=== PATIENT | male | born 1940 | race Caucasian/White ===

== ENCOUNTER → 2020-11-24 11:21 | Outpatient (CLI) | payer OTHER, SELFPAY ==
[2020-11-24 12:55] LABS: Appearance Urine UA CLEAR; Bilirubin Urine UA NEGATIVE (NEGATIVE); Color Urine UA YELLOW; Glucose Urine UA NEGATIVE (Negative); Ketones Urine UA NEGATIVE (NEGATIVE); Leukocyte Esterase Urine UA 2+ (NEGATIVE); Nitrite Urine UA NEGATIVE (Negative); Occult Blood Urine UA 2+ (Negative); Protein Urine UA NEGATIVE (Negative); Specific Gravity Urine UA 1.025 (1.000-1.035); Urobilinogen Urine UA 0.2 E.U./dL (0.2); pH Urine UA 5.5 (4.5-8.0)
[2020-11-24 12:57] LABS: Bacteria Urine None Seen
[2020-11-24 13:01] LABS: Culture Indicated Urine Specimen Cultured; RBC Urine 1-5/HPF (0-5/HPF); Squamous Epithelial Cell Urine 0-1 /HPF (0-5/HPF); WBC Urine 5-10/HPF (0-5/HPF)
== END ==
PROVIDERS: PCP Internal Medicine; Referring Provider Specialist; Visit Provider Specialist
DX: N39.0 Urinary tract infection, site not specified (principal)
CPT/HCPCS: 81003; 81015; 87077; 87086; 87186

== ENCOUNTER → 2021-01-22 12:49 | Outpatient (CLI) | payer OTHER, SELFPAY ==
--- OUTSIDE RECORDS SUMMARY | 2021-02-23 10:49 | XMS_ITS | Referral Summary ---
:1940 Author Organization [facility] Address [address] [place] [address] Care Team Providers Name Role Phone Tien Joe MD Primary Care Provider Reason for Referral Consultation (Routine) Status Reason Specialty Diagnoses / Referred By Referred To Procedures Contact Contact Authorized Patient Urology Diagnoses Urinary tract infection without hematuria, site unspecified Otto Joe MD [facility] [address] [place] [id number] [place] [address] Phone: Electronically signed by Otto Joe MD at Reason for Visit Reason Onset Date Comments Referral 02/10/2021 Urology Encounter Details Date Type Department Care Team Description 02/10/2021 Telephone [facility] Otto Joe MD Referral (Urology ) Internal Medicine [address] [facility] [place], [place] [address] [facility] [address] [place], [place] [phone] Allergies No Known Active Allergiesdocumented as of this encounter (statuses as of 02/22/2021) Medications Medication Sig Dispensed Refills Start Date End Date Status multivitamin-minerals Take 1 tablet 0 Active -lutein (MULTIVITAMIN by mouth daily. 50 PLUS) tablet lansoprazole Take 15 mg by 0 Act pepito (PREVACID) 15 mg mouth daily capsule Takes every other day rOPINIRole (REQUIP) 0 12/22/2020 Active 0.5 mg tablet amLODIPine (NORVASC) Take 1 tablet 180 tablet 4 01/28/2021 Active 10 mg (10 mg total) tabletIndications: by mouth daily Essential hypertension metoprolol succinate Take 1 tablet 90 tablet 4 01/28/2021 08/2 Active XL (TOPROL-XL) 50 mg (50 mg total) 24 hr by mouth daily tabletIndications: Paroxysmal atrial fibrillation (CMS/HCC) dabigatran etexilate Take 1 capsule 180 capsule 4 01/28/2021 0 04/23/2022 Active (Pradaxa) 150 mg (150 mg total) capsuIndications: by mouth 2 Paroxysmal atrial (two) times a fibrillation day (CMS/HCC) documented as of this encounter (statuses as of 02/22/2021) Active Problems Problem Noted Date Closed fracture of left ankle 12/30/2020 Overview: Added automatically from request for charlie roberts [id number] Muscle fibrillation 05/18/2020 Last Assessment & Plan: Stretching of forearm muscles will help Neck discomfort 05/18/2020 Last Assessment & Plan: CT neck done in Oct 2019 was negative fo r masses. Reviewed Endoscopy done in January 2020 which did not show any mass. Neck physical exam today was benign and symmetrical. Likely issue is benign muscle spas m and neck arthritis. However, if worsen ing then repeat neck CT may be considered. Dysphagia 11/11/2019 Overview: Added automatically from request for charlie roberts [id number] Mass of neck 10/17/2019 Globus sensation 10/17/2019 Last Assessment & Plan: CT scan of neck to be obtained. Further workup may involve a referral for a swallowing test, GI referral, or ENT referral. We will inform you of the results and plan once we get results today. Constipation 10/17/2019 Last Assessment & Plan: Stop metamucil due to side effect of blo ating. Start Miralax 17g 1-3x a day to maintain appropriate stool consistency and frequency. Hemorrhoids 10/17/2019 Last Assessment & Plan: Manage with stool softener. Balance disorder 02/07/2019 Last Assessment & Plan: We discussed physical therapy specifical ly to maintain your balance and gait. For now you declined. If you change your mind please call the clinic Sleep disorder 02/07/2019 Blurry vision, bilateral 02/12/2018 Epidermal cyst of face 02/12/2018 Lesion of skin of right ear 02/12/2018 Simple cyst of kidney 11/14/2017 Paroxysmal atrial fibrillation 06/23/2017 Overview: 11/21/2013 Last Assessment & Plan: Very well rate control. Continue with metoprolol XL 50 mg once a day. Continue with Pradaxa 150 mg twice a day . Microscopic hematuria 06/23/2017 Overview: 12/12/2012 Last Assessment & Plan: Follow up per Dr Edmonds. Hypertension 06/23/2017 Last Assessment & Plan: BP is up today. Continue to monitor it today and next we ek. If continues to stay elevated then consi yamilka increasing amlodipine to 5 mg once a day. Chronic anticoagulation 07/13/2016 Last Assessment & Plan: CMP and CBC are stable. Continue with Pr adaxa. Check CMP and CBC in 1 year. documented as of this encounter (statuses as of 02/22/2021) Immunizations Name Administration Dates Next Due Influenza Trivalent, Adjuvanted, 05/22/2019 Preservative Free Influenza, Quadrivalent 05/29/2018, 06/07/2017, 05/31/2016, 05/28/2015, 06/13/2014, 05/25/2013, 06/02/2012, 06/26/2011 Live Zoster (Zostavax) 10/15/2011 Moderna SARS-CoV-2 Vaccine 10/25/2020, 09/26/2020 Pneumococcal Conjugate PCV13 06/04/2015 (Byibsdf35) Pneumococcal Polysaccharide PPV23 08/16/2016, 03/10/2012 (Gfvmvnpsd22) Tdap (Boostrix,Adacel) 03/10/2012 documented as of this encounter Social History Tobacco Use Types Packs/Day Years Used Date Never Smoker Smokeless Tobacco: Never Used Alcohol Use Standard Drinks/Week Comments Yes 2 (1 standard drink = 0.6 oz pure alcoho l) Sex Assigned at Date Recorded Male 03/14/2018 9:57 AM PDT Job Start Date Occupation Industry Not on file Not on file Not on file documented as of this encounter Miscellaneous Notes Telephone Encounter - Otto Joe MD - 02/11/2021 7:33 AM PDT This had been addressed. elephone Encounter - Sarah Gusman RN - 02/10/2021 4:[address] Joe please review pended referral elephone Encounter - Katarina Alaniz - 02/10/2021 2:44 PM PDT [facility] is calling to ask for an renewal on his referral. Is current referral expires 02/23 and he is scheduled for follow up 03/[address] Dickerson for dx c61 Call back number [phone] Fax number [phone] signed by Katarina Alaniz at 02/10/2021 2:45 PM PDTdocumented in this encounter Plan of Treatment Upcoming Encounters Date Type Specialty Care Team Description 03/29/2021 Office Visit Orthopaedic Surgery Chase rGoss, DO [address] [facility] [address] [place], [place] [phone] Scheduled Referrals Name Type Priority Associated Diagnoses Order S chedususan XTRNL Referral to Outpatient Referral Routine Urinary tract Or dered: Urology infection without 02/11/2021 hematuria, site unspecified documented as of this encounter Implants Implanted Type Area Adult Secondary Education Instructor Device Shelf Model / Identifier Expiration Date Ser ial / Lot Plate 09/06 Tubular 12hole*141mm - [id number] Left: Synthes [id number] / Implanted: Qty: 1 on 01/05/2021 by Pete Gross DO at [facility] Ankle / Screw, Lock T8 Star 2.7*18mm - [id number] Left: Synthes [id number] / Implanted: Qty: 1 on 01/05/2021 by Pete Gross DO at [facility] Ankle / Screw, Cortex 3.5*14mm St - [id number] Left: Synthes 204.814 / Implanted: Qty: 3 on 01/05/2021 by Pete Gross DO at [facility] Ankle / Screw, Cortex 3.5*16mm St - [id number] Left: Synthes 204.816 / Implanted: Qty: 3 on 01/05/2021 by Pete Gross DO at [facility] Ankle / Screw, Cancellous 4.0*18mm Ft - [id number] Left: Synthes 206.018 / Implanted: Qty: 1 on 01/05/2021 by Pete Gross DO at [facility] Ankle / Screw, Crtx Lp St 3.5*62mm - [id number] Left: Synthes 07/04/2026 [id number] / Implanted: Qty: 1 on 01/05/2021 by Pete Gross DO at [facility] Ankle / [id number] documented as of this encounter Visit Diagnoses Diagnosis Urinary tract infection without hematuri a, site unspecified - Primary documented in this encounter Insurance Payer Benefit Plan / Subscriber ID Effective Dates Phone Addre ss Type Group [facility] [id number] [facility] documented as of this encounter Advance Directives Documents on File Type Date Recorded 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
== END ==
PROVIDERS: PCP Internal Medicine; Visit Provider Physician Assistant
DX: N34.3 Urethral syndrome, unspecified (principal)
CPT/HCPCS: 87086

== ENCOUNTER → 2021-07-01 09:37 | Outpatient (CLI) | payer OTHER, SELFPAY ==
[2021-07-01 10:49] LABS: Appearance Urine UA CLOUDY; Bilirubin Urine UA NEGATIVE (NEGATIVE); Color Urine UA YELLOW; Glucose Urine UA NEGATIVE (Negative); Ketones Urine UA NEGATIVE (NEGATIVE); Leukocyte Esterase Urine UA 2+ (NEGATIVE); Nitrite Urine UA NEGATIVE (Negative); Occult Blood Urine UA 2+ (Negative); Protein Urine UA 1+ (Negative); Urobilinogen Urine UA 0.2 E.U./dL (0.2)
[2021-07-01 10:58] LABS: Bacteria Urine None Seen; Culture Indicated Urine Specimen Cultured; RBC Urine 5-10/HPF (0-5/HPF); WBC Urine 10-30/HPF (0-5/HPF)
[2021-07-01 11:28] LABS: Prostate Specific Antigen < 0.064 ng/mL (0.10-4.00)
== END ==
PROVIDERS: PCP Internal Medicine; Referring Provider Specialist; Visit Provider Specialist
DX: Z85.46 Personal history of malignant neoplasm of prostate (principal); R30.0 Dysuria
CPT/HCPCS: 36415; 81001; 84153; 87077; 87086; 87186